=== PATIENT | female | born 1960 | race Caucasian/White ===

== ENCOUNTER 2018-04-14 11:52 | Emergency (ER) | payer OTHER ==
[2018-04-14] MEDS ORDERED: TETANUS/DIPHTHERIA/PERTUSSIS 0.5 ML SYRINGE IM ONE (12:29)
[2018-04-14] MEDS ORDERED: LIDOCAINE-EPINEPH-TETRACAINE 3 ML SYRINGE TOP STA (12:29)
[2018-04-14] MEDS ORDERED: ACETAMINOPHEN 325 MG TABLET PO STA (12:29)
--- NOTE | 2018-04-14 12:35 | ED Physician Documentation ---
PD HPI HEAD INJURY - Stated complaint Stated Complaint: FELL OFF LADDER - Chief complaint Chief Complaint: Trauma Hd/Nk - History obtained from History obtained from: Patient, Family - History of Present Illness Mechanism of head injury: Fell (She was up on a ladder about 8 feet and fell. She landed on her feet, mostly left side and also on her face. She mostly complains of nasal pain. Tetanus is unknown. She is not any blood thinners and is supposed to be on a blood pressure medicine but is noncompliant. She denies loss of consciousness. She says she has not been drinking today but smells of alcohol.) Review of Systems Ten Systems: 10 systems reviewed and negative Constitutional: denies: Fever, Chills Cardiac: denies: Chest pain / pressure, Palpitations Respiratory: denies: Dyspnea, Cough PD PAST MEDICAL HISTORY - Past Medical History Past Medical History: Yes Cardiovascular: Hypertension - Past Surgical History Past Surgical History: Yes General: Appendectomy - Present Medications Home Medications: Ambulatory Orders Medication Instructions Recorded Confirmed Cetirizine HCl [Zyrtec] 10 mg PO DAILY #10 capsule 08/06/13 Famotidine [Acid Control] 20 mg PO DAILY #10 tablet 08/06/13 diphenhydrAMINE [Benadryl] 25 mg PO Q4-6H PRN #30 capsule 08/06/13 predniSONE [Deltasone] 40 mg PO DAILY 5 Days tablet 08/06/13 - Allergies Allergies/Adverse Reactions: Allergies Allergy/AdvReac Type Severity Reaction Status Date / Time Morpholine Analogues Allergy Nausea Verified 08/06/13 11:36 oxycodone [Oxycodone] Allergy Rash Verified 08/06/13 11:36 - Social History Does the pt smoke?: Yes Smoking Status: Current every day smoker Does the pt drink ETOH?: Yes Does the pt have substance abuse?: No - Family History Family history: reports: Non contributory - Immunizations Immunizations are current?: Yes PD ED PE NORMAL - Vitals Vital signs reviewed: Yes - General General: Alert and oriented X 3, No acute distress, Other (Smells of alcohol) - HEENT HEENT: PERRL, EOMI, Other (There is a comp located laceration over the bridge of the nose with tenderness there, no septal hematoma although there is active right epistaxis. It is slow though. No other facial bony tenderness.) - Neck Neck: Supple, no meningeal sign, No bony TTP - Cardiac Cardiac: RRR, No murmur - Respiratory Respiratory: No respiratory distress, Clear bilaterally - Abdomen Abdomen: Normal bowel sounds, Soft, Non tender - Back Back: No CVA TTP, No spinal TTP - Derm Derm: Normal color, Warm and dry - Extremities Extremities: Other (Both legs have scrapes over the shins, and there is a little puncture wound over the anterior left upper arevalo. There is a laceration over the posterior heel with especially calcaneal tenderness on the left but none on the right. Tender prox thumb on Right too.) - Neuro Neuro: Alert and oriented X 3, Normal speech - Psych Psych: Normal mood, Normal affect Results - Vitals Vitals: Vital Signs - 24 hr 04/14/18 04/14/18 11:59 14:25 Temperature 36.5 C Heart Rate 92 90 Respiratory 18 20 Rate Blood Pressure 156/88 H 185/95 H O2 Saturation 96 99 Oxygen O2 Source Room air - Labs Labs: Laboratory Tests 04/14/18 04/14/18 14:05 14:05 WBC 13.0 H RBC 4.79 Hgb 15.6 Hct 46.5 MCV 96.9 MCH 32.5 H MCHC 33.6 RDW 13.3 Plt Count 228 MPV 8.0 Neut # (Auto) 11.2 H Lymph # (Auto) 1.0 L Bay # (Auto) 0.7 Eos # (Auto) 0.0 Baso # (Auto) 0.0 Absolute Nucleated RBC 0.00 Nucleated RBC % 0.0 Sodium 134 L Potassium 4.0 Chloride 100 L Carbon Dioxide 24 Anion Gap 10.0 BUN 5 L Creatinine 0.5 Estimated GFR (MDRD) 126 Glucose 126 H Calcium 9.3 Total Bilirubin 0.6 AST 28 ALT 26 Alkaline Phosphatase 59 Total Protein 7.4 Albumin 4.7 Globulin 2.7 Albumin/Globulin Ratio 1.7 Lipase 28 Ethyl Alcohol < 5.0 - Rads (name of study) C Spine CT Radiology: EMP read contemporaneously (There is a avulsion fracture of the tip of the odontoid process.) CT Head Radiology: EMP read contemporaneously (no ICH) CT Facial bones Radiology: EMP read contemporaneously (Avulsion fracture of the tip of the odontoid, bilateral comminuted depressed nasal fractures and comminuted fracture of the nasal bony septum.) X-rays of both tib fibs, left heel and left foot Radiology: EMP read contemporaneously (All negative) R hand XR Radiology: EMP read contemporaneously (NAD) Procedures - Laceration (location) Nasal bridge Length in cm: 3 Wound type: Stellate Anesthesia: LET Wound Preparation: Irrigated copiously NS Skin layer closure: Nylon, Size #-0 - enter number (5-0), Sutures - enter # (7) Other: Tetanus booster given Complexity: Simple left heel Length in cm: 5 Wound type: Linear Neurovascular status: Sensory intact, Motor intact, Vascular intact Tendon involvement: Tendon intact (good achilles function) Wound Preparation: Irrigated copiously NS Skin layer closure: [place], Other (She was very anxious and I felt stapling would offer her good closure with much quicker results as opposed to suturing since she was moving all around even after anesthetic.) Other: Tetanus booster given Complexity: Simple PD MEDICAL DECISION MAKING - ED course ED course: 57-year-old woman who may be intoxicated presents by private vehicle for a fall from a ladder with facial injuries, potential open left calcaneus fracture and arevalo injuries. She was found to have a tiny little odontoid fracture and [facility] was called for consultation at 1:20 PM. She initially refused attempts at drawing blood, "I am deathly afraid of needles." I offered her some Ativan. Case was discussed with Dr. Sherman at [facility] who reviewed her images, he felt that this was calcified ligament and in no way represented a fracture. - Sepsis Event Vital Signs: Vital Signs - 24 hr 04/14/18 04/14/18 11:59 14:25 Temperature 36.5 C Heart Rate 92 90 Respiratory 18 20 Rate Blood Pressure 156/88 H 185/95 H O2 Saturation 96 99 Oxygen O2 Source Room air Departure - Departure Disposition: 01 Home, Self Care Clinical Impression: Fall from ladder Qualifiers: Encounter type: initial encounter Qualified Code(s): W11.XXXA - Fall on and from ladder, initial encounter Nasal fracture Qualifiers: Encounter type: initial encounter Fracture type: closed Qualified Code(s): S02.2XXA - Fracture of nasal bones, initial encounter for closed fracture Laceration of foot Qualifiers: Encounter type: initial encounter Laterality: left Qualified Code(s): S91.312A - Laceration without foreign body, left foot, initial encounter Concussion Qualifiers: Encounter type: initial encounter Loss of consciousness presence/duration: without LOC Qualified Code(s): S06.0X0A - Concussion without loss of consciousness, initial encounter Contusion of leg, left Qualifiers: Encounter type: initial encounter Qualified Code(s): S80.12XA - Contusion of left lower leg, initial encounter Contusion of leg, right Qualifiers: Encounter type: initial encounter Qualified Code(s): S80.11XA - Contusion of right lower leg, initial encounter Condition: Good Record reviewed to determine appropriate education?: Yes Instructions: ED Head Injury Closed, ED Laceration Foot Follow-Up: Ozzie Esteves DDS [Provider Admit Priv/Credential] - Comments: Follow-up with Dr. Esteves regarding the facial fractures, call his office tomorrow for an appointment. Return if worse. Check in with your doctor next week for a wound check and recheck in the bandar should come out in about 2 weeks. Your blood pressure was elevated today on check into the emergency department. This does not mean that you have hypertension, it is a common phenomenon to come to the emergency department and have elevated blood pressure. I recommend that you see your primary care physician within the week to have it rechecked when you are feeling better.
--- NOTE | 2018-04-14 13:06 | CT Report ---
Procedure Date: 04/14/2018 Accession Number: [id number] / [id number] Procedure: CT - Head W/O CPT Code: FULL RESULT: EXAM: CT HEAD EXAM DATE: 04/14/2018 12:53 PM. CLINICAL HISTORY: Fall from ladder. Facial and head trauma. Pain. COMPARISON: None. TECHNIQUE: Multiaxial CT images were obtained from the foramen magnum to the vertex. Reformats: Sagittal and coronal. IV contrast: None. In accordance with CT protocol optimization, one or more of the following dose reduction techniques were utilized for this exam: automated exposure control, adjustment of mA and/or KV based on patient size, or use of iterative reconstructive technique. FINDINGS: Parenchyma: No intraparenchymal hemorrhage. No evidence of mass, midline shift, or CT findings of infarction. Arenas-white differentiation is distinct. Extraaxial Spaces: Normal for age. No subdural or epidural collections identified. Ventricles: Normal in size and position. Sinuses and Orbits: Normal. Bones: Acute bilateral depressed nasal fractures. Fracture of the bony nasal septum. Other: None. IMPRESSION: 1. Bilateral nasal fractures. 2. Nasal septal fracture. 3. No intracranial abnormality nor bleed. RADIA
--- NOTE | 2018-04-14 13:17 | CT Report ---
Procedure Date: 04/14/2018 Accession Number: [id number] / [id number] Procedure: CT - Cervical Spine W/O CPT Code: FULL RESULT: EXAM: CT CERVICAL SPINE WITHOUT CONTRAST DATE: 04/14/2018 12:53 PM. HISTORY: Fall off ladder. Facial and head trauma. Pain. COMPARISONS: None. TECHNIQUE: Thin-section axial images were acquired of the cervical spine without contrast. Post-processing: Coronal and sagittal reformats. Other: None. In accordance with CT protocol optimization, one or more of the following dose reduction techniques were utilized for this exam: automated exposure control, adjustment of mA and/or KV based on patient size, or use of iterative reconstructive technique. FINDINGS: Alignment: No scoliosis or spondylolisthesis. Bones: 8 x 7 x 4 mm flake fracture off the superior left side of the odontoid process with 1.5 mm offset. The rest of the trabecular and cortical patterns are intact. Interspace Levels/Facets: C1-C2: Unremarkable. C2-C3: Unremarkable. C3-C4: Mild narrowing. Old small left-sided disk herniation. C4-C5: Unremarkable. C5-C6: Marked narrowing. Old moderate central and left-sided disk herniation. Mild central spinal canal stenosis. Mild right and moderate left C5-C6 bony neural foraminal compromise. C6-C7: Marked narrowing. Old moderate right-sided disk herniation. Mild central spinal canal stenosis. C7-T1: Unremarkable. Musculature: Normal. No fatty atrophy. Other: The paravertebral and prevertebral soft tissues are unremarkable. The lung apices are clear. IMPRESSION: 8 x 7 x 4 mm minimally displaced avulsion fracture tip of the odontoid process, technically a type I odontoid fracture. Recommend consideration of lateral flexion and extension views to determine stability of the transverse and craniocervical ligaments. RADIA The above findings were discussed with Terence Abdalla by Dr. Quynh Kang at 13:15 hrs on 04/14/18.
[2018-04-14] MEDS ORDERED: LORazepam 0.5 MG TABLET PO STA (13:19)
--- NOTE | 2018-04-14 13:27 | CT Report ---
Procedure Date: 04/14/2018 Accession Number: [id number] / [id number] Procedure: CT - Facial Bones W/O CPT Code: FULL RESULT: EXAM: CT MAXILLOFACIAL WITHOUT CONTRAST EXAM DATE: 04/14/2018 12:53 PM. CLINICAL HISTORY: Fall from ladder. Facial and head trauma. Pain. COMPARISONS: None. TECHNIQUE: Thin-section axial images were acquired of the face without contrast. Post-processing: Coronal and sagittal reformats. Other: None. In accordance with CT protocol optimization, one or more of the following dose reduction techniques were utilized for this exam: automated exposure control, adjustment of mA and/or KV based on patient size, or use of iterative reconstructive technique. FINDINGS: Soft Tissue: The infratemporal fossa and parapharyngeal spaces are unremarkable. Moderate edema over the nasal bones. Orbits: Symmetric and unremarkable. Bones: Acute 4 x 8 x 7 mm minimally displaced avulsion fracture tip of the odontoid process as discussed on the dedicated CT cervical spine. Acute comminuted depressed and displaced nasal fractures bilaterally. Acute comminuted displaced fracture involving the bony nasal septum. Blood in the adjacent nasal passages compromising airflow. Temporomandibular Joints: The temporomandibular joints are symmetric and normally located. Sinuses: Normal. No mucosal thickening or fluid levels. Other: None. IMPRESSION: 1. Avulsion fracture tip of the odontoid. Please see separately dictated CT cervical spine report. 2. Bilateral comminuted depressed nasal fractures. 3. Comminuted fracture of the bony nasal septum. RADIA
--- NOTE | 2018-04-14 13:51 | XRAY Report ---
Procedure Date: 04/14/2018 Accession Number: [id number] / [id number] Procedure: XR - Tib/Fib BILAT CPT Code: FULL RESULT: EXAM: BILATERAL TIBIA/FIBULA RADIOGRAPHY EXAM DATE: 04/14/2018 01:13 PM. CLINICAL HISTORY: Fall from ladder. Pain. COMPARISON: 04/14/2018. TECHNIQUE: 2 views each side. FINDINGS: Bones: Normal. No fracture or bone lesion. Joints: The visualized knee and ankle joints are normal. No effusions. Soft Tissues: Normal. No soft tissue swelling. IMPRESSION: Normal bilaterally tibia/fibula radiography. RADIA
--- NOTE | 2018-04-14 14:10 | XRAY Report ---
Procedure Date: 04/14/2018 Accession Number: [id number] / [id number] Procedure: XR - Calcaneus LT CPT Code: FULL RESULT: EXAM: LEFT CALCANEUS RADIOGRAPHY EXAM DATE: 04/14/2018 01:13 PM. CLINICAL HISTORY: Foot/leg injury. COMPARISON: None. TECHNIQUE: 2 views. FINDINGS: Bones: Normal. No fractures or bone lesions. Joints: Normal. No subluxations. Soft Tissues: Normal. No soft tissue swelling. IMPRESSION: Normal calcaneus radiography. RADIA
--- NOTE | 2018-04-14 14:11 | XRAY Report ---
Procedure Date: 04/14/2018 Accession Number: [id number] / [id number] Procedure: XR - Foot 3 View LT CPT Code: FULL RESULT: EXAM: LEFT FOOT RADIOGRAPHY EXAM DATE: 04/14/2018 01:13 PM. CLINICAL HISTORY: Foot/leg inj. COMPARISON: None. TECHNIQUE: 3 views. FINDINGS: Bones: Normal. No fractures or bone lesions. Joints: Normal. No subluxations. Soft Tissues: Normal. No soft tissue swelling. IMPRESSION: Normal foot radiography. RADIA
[2018-04-14] MEDS ORDERED: BUFFERED LIDOCAINE 10 ML SYRINGE SUBQ STA (14:16)
[2018-04-14] MEDS ORDERED: OXYMETAZOLINE NASAL SPRAY NAS STA (14:18)
[2018-04-14 14:21] LABS: BASOPHILS % (AUTO) 0.4 %; EOSINOPHILS % (AUTO) 0.1 %; HGB - HEMOGLOBIN 15.6 g/dL (12.0-16.0); LYMPHOCYTES % (AUTO) 8.1 %; MEAN CORPUSCULAR HEMOGLOBIN 32.5 pg (27.0-31.0); MEAN CORPUSCULAR HGB CONC 33.6 g/dL (32.0-36.0); MEAN CORPUSCULAR VOLUME 96.9 fL (81.0-99.0); MONOCYTES # (AUTO) 0.7 10^3/uL (0.0-1.0); MONOCYTES % (AUTO) 5.2 %; NEUTROPHILS # (AUTO) 11.2 10^3/uL (1.5-6.6); NEUTROPHILS % (AUTO) 86.2 %; PLT - PLATELET COUNT 228 10^3/uL (130-450); RED BLOOD COUNT 4.79 10^6/uL (4.20-5.40); RED CELL DISTRIBUTION WIDTH 13.3 % (12.0-15.0)
[2018-04-14 14:26] VITALS: BP 185/95
[2018-04-14 15:01] LABS: ALBUMIN 4.7 g/dL (3.2-5.5); ALBUMIN/GLOBULIN RATIO 1.7 (1.0-2.2); ALKALINE PHOSPHATASE 59 IU/L (42-121); ALT ALANINE AMINOTRANSFERASE 26 IU/L (10-60); BILIRUBIN,TOTAL 0.6 mg/dL (0.2-1.0); BUN - BLOOD UREA NITROGEN 5 mg/dL (6-20); CALCIUM 9.3 mg/dL (8.5-10.3); CARBON DIOXIDE - CO2 24 mmol/L (21-32); CHLORIDE 100 mmol/L (101-111); CREATININE 0.5 mg/dL (0.4-1.0); GFR - MDRD 126 (>89); GLUCOSE 126 mg/dL (70-100); LIPASE 28 U/L (22-51); SODIUM 134 mmol/L (135-145); TOTAL PROTEIN 7.4 g/dL (6.7-8.2)
--- NOTE | 2018-04-14 15:09 | XRAY Report ---
Procedure Date: 04/14/2018 Accession Number: [id number] / [id number] Procedure: XR - Hand 3 View RT CPT Code: FULL RESULT: EXAM: RIGHT HAND RADIOGRAPHY EXAM DATE: 04/14/2018 02:48 PM. CLINICAL HISTORY: Fall from ladder. Hand injury. Pain. COMPARISON: None. TECHNIQUE: 3 views. FINDINGS: Bones: Normal. No fractures or bone lesions. Joints: Spurring at the first IP joint. No subluxations. Soft Tissues: Normal. No soft tissue swelling. IMPRESSION: No acute bony abnormality identified. RADIA
[2018-04-14 15:11] LABS: AST ASPARTATE AMINOTRANSFERASE 28 IU/L (10-42)
[2018-04-14] MEDS ORDERED: BACITRACIN OINT TOP ONE (16:37)
== END 2018-04-14 16:38 | disposition home or self-care (01) ==
LOC: ED 11:52
DX: S02.2XXA Fracture of nasal bones, initial encounter for closed fracture (principal); S91.312A Laceration without foreign body, left foot, initial encounter; S06.0X0A Concussion without loss of consciousness, initial encounter; S80.12XA Contusion of left lower leg, initial encounter; S80.11XA Contusion of right lower leg, initial encounter; S12.110A Anterior displaced Type II dens fracture, initial encounter for closed fracture; S01.21XA Laceration without foreign body of nose, initial encounter; S81.832A Puncture wound without foreign body, left lower leg, initial encounter; Z23 Encounter for immunization; I10 Essential (primary) hypertension; Z91.14 Patient's other noncompliance with medication regimen; F17.200 Nicotine dependence, unspecified, uncomplicated; W11.XXXA Fall on and from ladder, initial encounter
CPT/HCPCS: 12002; 12013; 36415; 70450; 70486; 72125; 73130; 73590; 73630; 73650; 80053; 80320; 83690; 85025; 90471; 90715; 99284; A9270

== ENCOUNTER 2018-04-25 14:17 | Day surgery (SDC) | payer OTHER ==
--- NOTE | 2018-04-25 08:37 | ANESTHESIA ---
Pre-Anesthesia VS, & Labs <Reny Roberson - Last Filed: 04/25/18 10:28> - NPO Last Fluid Intake: noon 4 oz - Is Patient ?: Not Applicable - Lab Results Lab results reviewed: Yes <Chari Grimm - Last Filed: 04/25/18 15:23> - Diagnosis comminuted fracture bilateral nasal bones, fracture nasal septum (Reny Roberson) - Procedure closed reduction nasal septal fracture (Reny Roberson) Height 4 ft 11 in Body Mass Index 32.7 Home Medications and Allergies <Reny Roberson - Last Filed: 04/25/18 10:28> <Chari Grimm - Last Filed: 04/25/18 15:23> Home Medications: Ambulatory Orders Medication Instructions Recorded Confirmed Amitriptyline [Elavil] 10 mg PO HS 04/25/18 04/25/18 Ibuprofen 800 mg PO TID 04/25/18 04/25/18 Mv-Min/Iron/Folic/Calcium/Vitk 1 each PO DAILY 04/25/18 04/25/18 [Women's Multivitamin Tablet] amLODIPine [Norvasc] 5 mg PO DAILY 04/25/18 04/25/18 Allergies/Adverse Reactions: Allergies Allergy/AdvReac Type Severity Reaction Status Date / Time iodine Allergy Rash Verified 04/25/18 15:04 Morpholine Analogues Allergy Nausea Verified 04/25/18 15:04 oxycodone [Oxycodone] Allergy Rash Verified 04/25/18 15:04 Anes History & Medical History - Medical History Cardiovascular: reports: Hypertension Smoking Status: Current every day smoker - Surgical History General: Appendectomy <Reny Roberson Steven - Last Filed: 04/25/18 10:28> - Anesthetic History Anesthesia Complications: reports: No previous complications Family history of Anesthesia Complications: Denies Family history of Malignant Hyperthermia: Denies - Airway/Dental Dental: WNL Mouth Openin Fingerbreadth Neck Mobility: Normal Mallampati classification: II Thyromental Distance: 4-6 cm - Medical History Pulmonary: reports: None Gastrointestinal: reports: None, Esophageal varices Urinary: reports: None Neuro: reports: None Musculoskeletal: reports: None, Osteopenia Endocrine/Autoimmune: reports: None Blood Disorders: reports: None Skin: reports: None Smoking Status: Current every day smoker (1/2 pack per days for 5-7 years) Psychosocial: reports: Alcohol (drinks 1-2 beers daily) - Surgical History Orthopedic: Other (pilonidal cyst removal) <Chari Grimm - Last Filed: 04/25/18 15:23> Exam General: Alert Respiratory: Lungs clear Cardiovascular: Regular rate, Normal S1, Normal S2, No murmurs Cognitive Status: Within normal limits <Chair Grimm - Last Filed: 04/25/18 15:23> Plan Anesthesia Type: General Is this case an emergency?: No <Reny Roberson - Last Filed: 04/25/18 10:28> Anesthesia Type: General Consent for Procedure(s) Verified and Reviewed: Yes Code Status: Attempt Resuscitation ASA classification: 2-Mild systemic disease Is this case an emergency?: No <Chari Grimm - Last Filed: 04/25/18 15:23>
[2018-04-25] MEDS ORDERED: ceFAZolin 2 GM/50 ML 2 GM/50 ML BAG IV ONE (14:27)
[2018-04-25] MEDS ORDERED: LACTATED RINGERS 1,000 ML IV ONE ×2 (14:29→17:04)
[2018-04-25] MEDS ORDERED: LIDOCAINE MPF 2%-EPI 1:200000 20 ML VIAL ONE (15:29)
[2018-04-25] MEDS ORDERED: OXYMETAZOLINE NASAL SPRAY NAS ONE ×2 (15:35→16:14)
[2018-04-25] MEDS ORDERED: LIDOCAINE MPF 2%-EPI 1:200000 20 ML VIAL SUBQ ONE ×2 (16:15)
[2018-04-25] MEDS ORDERED: BACITRACIN OINT TOP ONE (16:20)
[2018-04-25] MEDS ORDERED: BACITRACIN ZINC OINT 15 GM TOP ONE (16:23)
[2018-04-25] MEDS ORDERED: MIDAZOLAM 2 MG/2 ML VIAL IVP ONE (16:45)
[2018-04-25] MEDS ORDERED: fentaNYL 100 MCG/2 ML VIAL IVP ONE (16:45)
[2018-04-25] MEDS ORDERED: LIDOCAINE-MPF 2% 5 ML VIAL IM ONE (16:45)
[2018-04-25] MEDS ORDERED: ONDANSETRON 4 MG/2 ML VIAL IVP ONE (16:45)
[2018-04-25] MEDS ORDERED: PROPOFOL 200 MG/20 ML VIAL IVP ONE (16:45)
[2018-04-25] MEDS ORDERED: DEXAMETHASONE 4 MG/ML VIAL IVP ONE (16:45)
[2018-04-25] MEDS ORDERED: ACETAMINOPHEN 1,000 MG/100 ML 100 ML IV ONE (16:53)
[2018-04-25 17:29] VITALS: BP 158/100
--- NOTE | 2018-04-26 04:45 | OPERATIVE REPORT ---
DATE OF SERVICE: 04/25/2018 Physician: Ozzie Esteves DDS PREOPERATIVE DIAGNOSIS: Fracture of the bilateral nasal bones and septum. POSTOPERATIVE DIAGNOSIS: Fracture of the bilateral nasal bones and septum. NAME OF PROCEDURE: Closed reduction of the bilateral nasal bones and septum. SURGEON: Ozzie Esteves DDS ANESTHESIA: General. ACCESS REGISTRAR: Vanec ANESTHESIOLOGIST: Reny Roberson CRNA COMPLICATIONS: None. ESTIMATED BLOOD LOSS: 25 mL INTRAVENOUS FLUIDS: 900 mL of crystalloid. SPECIMENS: None. DRAINS/PACKS/CATHETERS: Merocel packing was placed in the bilateral nares. A 1/4 inch iodoform gauz e, a single piece, was also packed in the bilateral nares, and a Hubbard splint was placed on the dors um of the nose. INDICATIONS FOR PROCEDURE: Patient is a 57-year-old female who fell off a ladder and struck her nose about 10 days ago. She had a laceration on the bridge of her nose sewn up at the emergency room, an d a CT scan demonstrated comminution of the nasal bones and septum with severe deviation of the septu m. The patient had continued breathing difficulties, as well as deformity of the nasal bridge, and s o she presented to my office for evaluation and management of her injury. Clinical and radiographic examination was consistent with bilateral nasal bone fracture, as well as a nasal septal fracture wit h deviation to the left of the septum and deviation to the right of the nasal bones. It was decided that closed reduction of the bilateral nasal bones of the septum was indicated. The risks, benefits and alternatives of this plan were discussed with the patient including pain, swelling, bleeding, inf ection, damage to adjacent tissues, nerve damage, need for further surgeries, continued deviation of the nose, poor cosmesis, difficulty breathing and sinus problems. Adequate time was given to answer all questions and informed consent was obtained. DESCRIPTION OF PROCEDURE: The patient was brought to the main operating room and placed in the supin e position on the operating table. General anesthesia was induced by the anesthesia team and the air way was secured with an LMA. A throat pack was placed, comprised of 1 Ray-Madie packed into the pharyn x. A formal timeout was executed. The patient was draped and the skin where the dressing would go w as prepped. Local anesthesia was achieved with 4 mL of 2% lidocaine with 1:200,000 epinephrine. Afr in-soaked cottonoids x3 were placed in the bilateral nares and allowed to sit for 5 minutes. The Boi es elevator was used to mobilize and reduce the bilateral nasal bones. The Asch forceps was used to mobilize and reduce the septum. It was difficult to place the Asch because of the severe deviation o f the septum off to the left, and the Boies had to be used to gently apply pressure to the septum and ease it back over to the patient's right, prior to complete introduction of the Asch forceps. Afrin -soaked cottonoids were again applied to the bilateral nares and allowed to sit for 5 minutes to aid in hemostasis. Quarter inch iodoform gauze was soaked in bacitracin and packed into the superior asp ect of the bilateral nares, into the left first because that is where the most significant deviation requiring expansion of the internal nasal valve was, and then into the right. Merocel packings were then soaked in bacitracin and placed into the bilateral nares. A single 0 Prolene suture was used to secure all packings in place and prevent aspiration of the packings. A throat pack was removed and good hemostasis from the anterior and posterior nose was confirmed. The patient was then emerged fro m anesthesia with removal of the airway and transferred to the PACU in stable condition. TD: 04/25/2018 17:27
== END 2018-04-25 14:18 | disposition home or self-care (01) ==
LOC: SDS 14:17
PROVIDERS: ATTEND Dentist Oral and Maxillofacial Surgery
PROC: 0NSBXZZ Reposition Nasal Bone, External Approach (ICD-10-PCS; principal; 2018-04-25 15:30)
DX: S02.2XXB Fracture of nasal bones, initial encounter for open fracture (principal); J34.2 Deviated nasal septum; I10 Essential (primary) hypertension; F17.210 Nicotine dependence, cigarettes, uncomplicated
CPT/HCPCS: 21320; 21337; A9270; J0131; J0690; J7120

== ENCOUNTER 2024-04-28 08:17 | Outpatient (CLI) | payer MEDICARE, OTHER ==
--- NOTE | 2024-04-28 14:14 | DEXA Report ---
PROCEDURE: Dexa Spine and/or Hip INDICATIONS: POST MENOPAUSAL TECHNIQUE: Dual energy x-ray absorptiometry (DXA) was performed on a Everpix System. Regions measur ed are the AP Spine, femoral neck, and if needed forearm. COMPARISON: None FINDINGS: Lumbar Spine: Bone Mineral Density: 1.243 g/cm/cm,T score: 0.5. Left Femoral Neck: Bone Mineral Density: 0.780 g/cm/cm, T score: -1.9. Left Hip: Bone Mineral Density: 0.865 g/cm/cm,T score: -1.1. FRAX risk factors: Alcohol use, history of fracture, tobacco use 10 year risk of major osteoporotic fracture: 20.7% major osteoporotic fracture = hip, clinical vertebral, proximal humerus, distal forearm 10 year risk of hip fracture: 5.9% (T score greater or equal to -1.0: NORMAL) (T score from -1.1 to -2.4: OSTEOPENIA) (T score less than or equal to -2.5 to: OSTEOPOROSIS) Impression: By WHO criteria, this patient has low bone density (osteopenia). Patients with diagnosis of osteoporosis or osteopenia should have regular bone mineral density assess ment. For those eligible for Medicare, routine testing is allowed once every 2 years. Testing frequ ency can be increased for patients who have rapidly progressing disease or for those who are receivin g medical therapy to restore bone mass. Reviewed by: Edson Reyes MD on 04/28/2024 2:12 PM PDT Approved by: Edson Reyes MD on 04/28/2024 2:12 PM PDT Station ID: [id number]
== END 2024-04-28 08:18 | disposition home or self-care (01) ==
LOC: DI 08:17
PROVIDERS: ATTEND Family Medicine
DX: Z78.0 Asymptomatic menopausal state (principal); M85.89 Other specified disorders of bone density and structure, multiple sites; Z12.2 Encounter for screening for malignant neoplasm of respiratory organs; I25.10 Atherosclerotic heart disease of native coronary artery without angina pectoris; R59.0 Localized enlarged lymph nodes; F17.210 Nicotine dependence, cigarettes, uncomplicated

== ENCOUNTER 2024-04-28 08:18 | Outpatient (CLI) | payer MEDICARE, OTHER ==
--- NOTE | 2024-04-28 17:20 | CT Report ---
PROCEDURE: Lung Cancer Screen INDICATIONS: HIST OF SMOKING TECHNIQUE: A CT scan of the chest was performed. Intravenous contrast media was not administered. Images were re corded and evaluated at appropriate window settings. Reformats: axial MIP of the chest, coronal and s agittal. For radiation dose reduction, the following was used: automated exposure control, adjustment of mA and/or kV according to patient size. COMPARISON: None. FINDINGS: Image quality: Excellent. Prior cancer history: Lungs and pleura: No pleural effusions. No pneumothorax. No suspicious pulmonary nodules which requi re follow up. Mediastinum: Heart size is normal. No pericardial effusion. No large vessel abnormality. No mediastin al adenopathy by size criteria. Mild calcification of the thoracic aorta. Marked three-vessel langley ry calcification. Chest wall and lower neck: Thyroid is unremarkable. Round right axillary lymph node 7 mm in short axi s (, ). Bones: No aggressive osseous abnormality. Upper Abdomen: Unremarkable. IMPRESSION: 1. No suspicious pulmonary nodules or consolidation. Lung RAD: 1 - Negative. Recommendation: Continue annual screening in 12 Months with LDCT 2. Non-Lung Significant Findings: Coronary Arterial Calcification - Moderate or Severe. Consider card iology referral. 3. Rounded right axillary lymph node measuring 7 mm. Based on morphology, recommend correlation with physical exam and mammography. Reviewed by: Polly Haas MD on 04/28/2024 5:18 PM PDT Approved by: Polly Haas MD on 04/28/2024 5:18 PM PDT Station ID: [id number]
== END 2024-04-28 08:19 | disposition home or self-care (01) ==
LOC: DI 08:18
PROVIDERS: ATTEND Family Medicine
DX: Z12.2 Encounter for screening for malignant neoplasm of respiratory organs (principal); I25.10 Atherosclerotic heart disease of native coronary artery without angina pectoris; R59.0 Localized enlarged lymph nodes; F17.210 Nicotine dependence, cigarettes, uncomplicated